=== PATIENT | female | born 1955 | race African-American/Black ===

== ENCOUNTER 2019-11-16 12:43 | Inpatient (IN) | payer OTHER ==
[~2019-11-16] VITALS: Ht 167.6 cm; Wt 35.8 kg
[2019-11-16 13:12] VITALS: BP_SYST 118
--- NOTE | 2019-11-16 13:30 | NUR ---
Patient to ER bed 08 to gown for evaluation. Side rails up.
--- NOTE | 2019-11-16 13:32 | NUR ---
Patient arrived in the ED accompanied by son for medical clearance prior to being placed at [facility] under Dr. La. Denied any chest pain, headache, or shortness of breath. Denied fevers, chills, nausea, or vomiting. Patient is alert and oriented x1, respirations even and unlabored, speaking in full sentences, and ambulating using a wheelchair. VSS, pain level 0/10. Son at bedside. Informed of approximate wait time. Instructed to notify ED staff for any changes in condition or worsening of symptoms. Patient's son verbalized understanding.
--- NOTE | 2019-11-16 13:34 | NUR ---
ER Dr. Patel at bedside examining patient.
--- NOTE | 2019-11-16 13:40 | NUR ---
Urine specimen collected and dropped off at the lab.
--- NOTE | 2019-11-16 13:43 | NUR ---
control valve technician at bedside collecting blood specimen as ordered by Dr. Patel. Patient tolerated the procedure well.
[2019-11-16 13:58] LABS: BILIRUBIN,URINE NEGATIVE (NEGATIVE); BLOOD, URINE NEGATIVE (NEGATIVE); CLARITY/URINE CLEAR (CLEAR); COLOR,URINE YELLOW (YELLOW); GLUCOSE,URINE NEGATIVE (NEGATIVE); KETONES,URINE NEGATIVE (NEGATIVE); LEUKOCYTE ESTERASE ,URINE 1+ (NEGATIVE); NITRITE, URINE NEGATIVE (NEGATIVE); PROTEIN URINE 1+ (NEGATIVE); UROBILINOGEN,URINE 0.2 (0.2-1.0)
[2019-11-16 14:10] LABS: BACTERIA,URINE FEW /HPF (None Seen); MUCUS,URINE 1+ /LPF (None Seen); RBC,URINE 0-3 /HPF (0-3)
[2019-11-16 14:17] LABS: ANION GAP 11 (5-15); CALCIUM 7.9 mg/dL (8.4-11.0); CHLORIDE 95 mmol/L (98-107); CREATININE 2.97 mg/dL (0.55-1.30); GLUCOSE 89 mg/dL (70-99); POTASSIUM 3.1 mmol/L (3.5-5.1); SODIUM SERUM 134 mmol/L (136-145); UREA NITROGEN, BLOOD 64 mg/dL (8-21)
[2019-11-16 14:23] LABS: GFR AFRICAN AMERICAN 20 mL/min (>90)
[2019-11-16 14:27] LABS: ALANINE AMINOTRANSFERASE 14 U/L (12-78); ASPARTATE AMINOTRANSFERASE 15 U/L (10-37); TOTAL BILIRUBIN 0.3 mg/dL (0.0-1.0)
[2019-11-16 14:28] LABS: ACETAMINOPHEN < 1 ug/mL (1-30); ALCOHOL, BLOOD < 3 mg/dL (<10)
[2019-11-16 14:32] LABS: BARBITURATE, URINE NEGATIVE (NEG <=200); BENZODIAZEPINE, URINE NEGATIVE (NEG <=150); CANNABINOID, URINE NEGATIVE (NEG <=50); COCAINE, URINE NEGATIVE (NEG <=150); METHAMPHETAMINES SCREEN,URINE NEGATIVE (NEG <=500); OPIATE, URINE NEGATIVE (NEG <=100); PHENCYCLIDINE SCREEN,URINE NEGATIVE (NEG <=25); UR TRICYCLIC ANTIDEPRESSANTS NEGATIVE (NEG <=300); URINE AMPHETAMINE NEGATIVE (NEG <=500); URINE METHADONE NEGATIVE (NEG <=200); URINE OXYCODONE SCREEN NEGATIVE (NEG <=100); URINE PROPOXYPHENE SCREEN NEGATIVE (NEG <=300)
[2019-11-16 14:50] LABS: BASOPHILS % (AUTO) 0.5 % (0.0-2.0); EOSINOPHILS # (AUTO) 1.4 K/uL (0.0-0.4); EOSINOPHILS % (AUTO) 19.1 % (0.0-4.0); HEMOGLOBIN 7.7 g/dL (12.0-16.0); LYMPHOCYTES % (AUTO) 14.2 % (20.5-51.5); MEAN CORPUSCULAR HEMOGLOBIN 32 pg (27-31); MEAN CORPUSCULAR HGB CONC 34 % (32-36); MEAN CORPUSCULAR VOLUME 97 fL (79.0-98.0); MONOCYTES # (AUTO) 0.4 K/uL (0.0-1.0); MONOCYTES % (AUTO) 5.3 % (1.7-9.3); NEUTROPHILS # (AUTO) 4.3 K/uL (1.8-7.7); NEUTROPHILS % (AUTO) 60.9 % (40.0-70.0); PLATELET COUNT (AUTO) 256 K/uL (130-430); RED BLOOD CELL COUNT(AUTO) 2.39 MIL/uL (4.2-6.2); RED CELL DISTRIBUTION WIDTH 16.1 % (9.0-15.0); WHITE BLOOD COUNT (AUTO) 7.1 K/uL (4.8-10.8)
[2019-11-16 14:51] LABS: CHOLESTEROL 132 mg/dL (<200); TRIGLYCERIDES 90 mg/dL (30-150)
[2019-11-16 14:52] LABS: HDL CHOLESTEROL 48 mg/dL (>55); LDL CHOLESTEROL 68 mg/dL (<100)
[2019-11-16] MEDS ORDERED: NACL 0.9% 1,000 ML IV ONE (15:00)
--- NOTE | 2019-11-16 15:13 | NUR ---
Received admiting orders from Dr. Lopez. Called for a bed.
[2019-11-16] MEDS ORDERED: KCL 20 mEq in NS 1000 mL 1,000 ML IV ONE (15:15)
--- NOTE | 2019-11-16 15:30 | NUR ---
Reconciled meds. Belonging's list done.
[2019-11-16] MEDS ORDERED: LEVO150T8 PO (15:34)
[2019-11-16] MEDS ORDERED: LORA-259 PO (15:36)
[2019-11-16] MEDS ORDERED: REM15 PO (15:36)
[2019-11-16] MEDS ORDERED: OLAN5TAB26 PO (15:36)
--- NOTE | 2019-11-16 15:40 | NUR ---
# 24 gauge angiocath placed to RIGHT HAND. Use of asceptic technique. Opsite placed over site. Blood return noted. Flushed with 10 cc of normal saline. No evidence of infiltration noted. Patient tolerated well.
--- NOTE | 2019-11-16 15:55 | NUR ---
ECG done at bedside as ordered by Dr. Patel. Patient tolerated the procedure well. Report given to
[2019-11-16] MEDS: NACL 0.9% 1,000 ML IV SCH (16:00)
--- NOTE | 2019-11-16 16:10 | NUR ---
ADMISSION NOTE Received patient from ER via darío, received report from JEAN-PAUL BREWSTER. Patient admitted with diagnosis of VASOMOTOR NEPHROPATHY, ACUTE RENAL FAILURE, DEHYDRATION, BIPOLAR. Patient oriented to hospital routine, call light, toileting and safety-patient verbalized understanding.
--- NOTE | 2019-11-16 16:17 | NUR ---
Patient will be admitted to care of Dr. Lopez. Admitted to Telemetry unit. Will go to room 106A. Belongings list completed. Complete and up to date summary report printed. SBAR report given to NEY Schaefer at bedside with opportunity for questions.
[2019-11-16 16:20] VITALS: BP_SYST 123
--- NOTE | 2019-11-16 16:45 | NUR ---
Initial Notes: Received patient sitting on the bed.Dr miranda came to examined the patient but patient refused to bed assessed.Non compliant.Call light with in reach. Bed locked at lowest position. Bed alarm on. Safety measures rendered. Continue to monitor.
[2019-11-16] MEDS ORDERED: LORazepam 1 MG TABLET PO PRN (17:00)
[2019-11-16] MEDS ORDERED: ACETAMINOPHEN 325 MG TABLET PO PRN (17:15)
[2019-11-16] MEDS ORDERED: LORazepam 1 MG TABLET GT PRN (17:15)
--- NOTE | 2019-11-16 18:44 | NUR ---
Closing Note: Patient refused to be assessed.Non compliant. Sitting on the bed.Non verbal. Refused iv fluids to be given. Patient tried hitting the Rn ,explained to patient the reason for iv fluids.Will endorsed to incoming night nurse patient in stable condition.Safety measures rendered. Continue to monitor.
--- NOTE | 2019-11-16 19:45 | NUR ---
Opening Note Received report from nima RN, patient is sitting up in bed, patient is nonverbal, patient refused tele monitor, explained and educated patient reasons for tele monitor. Will try again. No signs of acute distress, even and unlabored breathing on room air, IV to right hand intact and SL, safety and fall precautions in place, aspiration precautions in place, bed locked and in lowest position, bed alarm on, two side rails up, call light with patient, will continue to monitor.
--- NOTE | 2019-11-16 19:55 | NUR ---
Patient Refused Vital Signs Patient is sitting up in bed in her street clothes, no signs of acute distress, even and unlabored breathing on room air, IV to right hand intact, pt physically refused vital signs, assessment and tele monitor, admitting nurse Britt attempted to assist, pt still refused despite education, odor coming from the pt, pt physically refused to change into hospital gown, and refused to be touched. Safety and fall precautions in place, call light with patient, will continue to monitor.
--- NOTE | 2019-11-16 20:49 | NUR ---
Medication Patient is sitting up in bed, no signs of acute distress, tolerating room air, IV to right hand intact, offered comfort measures, educated patient on 2100 scheduled medication indications and potential side effects, patient refused medications despite education. Britt RN assisted with and patient still refused. Patient refused tele monitor and assessment at this time. Safety and fall precautions in place, call light with patient, will continue to monitor.
[2019-11-16] MEDS: MIRTAZAPINE 15 MG TABLET PO SCH (21:00)
[2019-11-16] MEDS: OLANZapine 5 MG TABLET PO SCH (21:00)
--- NOTE | 2019-11-16 21:30 | NUR ---
Dr. Lopez Spoke with Dr. Lopez regarding patients refusal to take 2000 vital signs, assessment, 2100 scheduled medications and tele monitor. Informed her that multiple nurses attempted to assist. gave new orders to D/C patient from telemetry. stated "let her be and I will come and see the patient in the morning". Orders verified by read-back, RN to input.
--- NOTE | 2019-11-16 22:40 | NUR ---
RN Rounds Pt is sitting up in bed, still in street clothes, tolerating room air, no signs of acute distress, IV to right hand intact, offered comfort measures and to help clean the pt, pt refused to be touched. Safety, fall, and aspiration precautions in place, call light with patient, will continue to monitor.
--- NOTE | 2019-11-17 00:07 | NUR ---
RN Rounds Patient is resting in bed, pt is still in her street clothes, no signs of acute distress, tolerating room air, IV to right hand intact, offered comfort measures, pt refused to be touched. Safety, aspiration, and fall precautions in place, call light with patient, will continue to monitor.
[2019-11-17] MEDS: NACL 0.9% 1,000 ML IV SCH ×3 (02:00→22:00)
--- NOTE | 2019-11-17 02:10 | NUR ---
RN Rounds Assisted patient to restroom and back to bed safely, odor coming from the patient, offered to clean the patient and change into gown but pt refused to be touched, no signs of acute distress, tolerating room air, IV intact. Safety, fall and aspiration precautions in place, call light with patient, will continue to monitor.
--- NOTE | 2019-11-17 03:23 | NUR ---
RN Rounds Patient is resting in bed, eyes closed, no signs of acute distress, even and unlabored breathing on room air, safety and fall precautions in place, call light with patient, will continue to monitor.
--- NOTE | 2019-11-17 04:03 | NUR ---
RN Rounds Assisted pt to restroom and back to bed safely, pt still in same clothes, odor coming from the pt offered to clean and change pt into gown but pt refused, no signs of acute distress, tolerating room air, IV to right hand intact. Safety, fall and aspiration precautions in place, call light with patient, will continue to monitor.
--- NOTE | 2019-11-17 05:35 | NUR ---
RN Rounds Patient is resting in bed, eyes closed, even and unlabored breathing on room air, no signs of acute distress at this time, offered to change patient into a gown and provide new linens, patient refused. Safety and fall precautions in place, call light with patient, will continue to monitor.
--- NOTE | 2019-11-17 05:39 | NUR ---
CONSULT: CONSULT CALLED FOR DR. WALLS I SPOKE WITH BECKY CUELLAR REASON FOR CONSULT: BIPOLAR DISORDER REQUESTING CONSULT: DR. GONZALEZ FACE SHEET WAS FAXED ALREADY TECHNICAL AGRONOMIST PHONE NUMBER: [phone]
[2019-11-17] MEDS: LEVOTHYROXINE SODIUM 0.15 MG TABLET PO SCH (06:29)
--- NOTE | 2019-11-17 06:33 | NUR ---
Medication Pt resting in bed, no signs of acute distress, educated pt on 0700 medication uses and potential side effects. Pt refused medication despite education. Safety and fall precautions in place, call light with pt will continue to monitor.
--- NOTE | 2019-11-17 06:41 | NUR ---
Closing Note Pt is sitting up in bed, still dressed in street clothes, even and unlabored breathing on room air, no signs of acute distress, IV to right hand intact, offered comfort measures through shift, pt refused to be touched. Safety, fall, and aspiration precautions in place, call light with patient, will endorse care to dayshift RN.
--- NOTE | 2019-11-17 08:46 | NUR ---
Nutrition Update Ilsandro Scale 16 noted. Pt admitted for vasomotor nephropathy, dehydration, ARF. Diet: N/A BMI: 12.9 kg/m2 RD to follow per nutrition care standards.
[2019-11-17] MEDS: FAMOTIDINE 20 MG TABLET PO SCH (09:00)
--- NOTE | 2019-11-17 09:48 | NUR ---
received patient in bed. face completely covered. patient not answering any questons. will not verbalize. was able to take vital signs, patient did resist but eventually allowed vital signs to be taken. Diyakyleparth refused AM meds. Able visualize IV site, no redness no swelling, was able to flush HL without resistance. IV site in p;cecille ,no redness no swelling at site. respirarations even and unlabored.
[2019-11-17 10:04] LABS: BASOPHILS % (AUTO) 0.8 % (0.0-2.0); EOSINOPHILS # (AUTO) 1.4 K/uL (0.0-0.4); EOSINOPHILS % (AUTO) 22.4 % (0.0-4.0); HEMATOCRIT 23.9 % (36-48); LYMPHOCYTES # (AUTO) 0.9 K/uL (1.0-5.5); LYMPHOCYTES % (AUTO) 14.7 % (20.5-51.5); MEAN CORPUSCULAR HEMOGLOBIN 33 pg (27-31); MEAN CORPUSCULAR HGB CONC 33 % (32-36); MEAN CORPUSCULAR VOLUME 97 fL (79.0-98.0); MONOCYTES # (AUTO) 0.3 K/uL (0.0-1.0); MONOCYTES % (AUTO) 5.6 % (1.7-9.3); NEUTROPHILS # (AUTO) 3.4 K/uL (1.8-7.7); NEUTROPHILS % (AUTO) 56.5 % (40.0-70.0); PLATELET COUNT (AUTO) 274 K/uL (130-430); RED BLOOD CELL COUNT(AUTO) 2.46 MIL/uL (4.2-6.2); RED CELL DISTRIBUTION WIDTH 15.9 % (9.0-15.0); WHITE BLOOD COUNT (AUTO) 6.1 K/uL (4.8-10.8)
[2019-11-17 10:18] LABS: TOTAL IRON BIND. CAPACITY 195 ug/dL (250-450)
[2019-11-17 10:28] LABS: ALBUMIN 2.9 g/dL (3.4-4.8); CALCIUM 8.3 mg/dL (8.4-11.0); CREATININE 2.54 mg/dL (0.55-1.30); POTASSIUM 3.3 mmol/L (3.5-5.1); THYROID STIMULATING HORMONE 1.51 uIu/mL (0.36-3.74); TOTAL BILIRUBIN 0.3 mg/dL (0.0-1.0)
[2019-11-17 11:23] VITALS: BP_SYST 96
[2019-11-17] MEDS ORDERED: POTASSIUM CHLORIDE 30 MEQ in NS 250 ML IV ONE (12:30)
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
[2019-11-17 15:14] VITALS: BP_SYST 107
[2019-11-17] MEDS: cefTRIAXone 1 GM in D5W 50 ML IV SCH (16:19)
--- NOTE | 2019-11-17 19:30 | NUR ---
Opening notes Received report. Patient is resting in bed. No signs of distress noted. Breathing even and unlabored. IV patent and intact, infusing k-rider. No needs at this time. Call light with the patient. Safety precautions in place.
[2019-11-17 20:00] VITALS: BP_SYST 116
[2019-11-17] MEDS: MIRTAZAPINE 15 MG TABLET PO SCH ×2 (21:00→22:10)
[2019-11-17] MEDS: OLANZapine 5 MG TABLET PO SCH ×2 (21:00→22:10)
--- NOTE | 2019-11-17 21:30 | NUR ---
Medications given. Educated the action and side effects of medications. Patient verbalized understanding and tolerated well. Patient IV infiltrated. IV removed, catheter tip intact and discarded. New IV inserted to left forearm 24 gauge. Resumed IVF. No other needs. Call light with the patient. Safety precautions in place.
--- NOTE | 2019-11-17 22:30 | NUR ---
Resting Patient resting in bed. No signs of distress noted. Breathing even and unlabored. IVF infusing well. Provided patient with warm blanket. No other needs. Call light with the patient. Safety precautions in place.
--- NOTE | 2019-11-18 00:30 | NUR ---
Resting Patient resting in bed. No signs of distress noted. Breathing even and unlabored. IVF infusing well. Call light with the patient. Safety precautions in place.
--- NOTE | 2019-11-18 02:00 | NUR ---
Sleeping Patient sleeping. No signs of distress noted. Breathing even and unlabored. IVF infusing well. Call light with the patient. Safety precautions in place.
--- NOTE | 2019-11-18 04:16 | NUR ---
Sleeping No signs of distress noted. Breathing even and unlabored. IVF infusing. No needs at this time. Call light with the patient. Safety precautions in place.
--- NOTE | 2019-11-18 06:50 | NUR ---
Closing notes Patient resting comfortably in bed. No signs of distress noted. Breathing even and unlabored. IV patent and intact, no signs of infiltration noted. All needs met throughout the shift. Call light with the patient. Safety precautions in place. Will endorse care to day shift RN.
[2019-11-18] MEDS: LEVOTHYROXINE SODIUM 0.15 MG TABLET PO SCH (07:00)
[2019-11-18] MEDS: NACL 0.9% 1,000 ML IV SCH ×3 (08:00→17:03)
[2019-11-18 08:08] LABS: FOLATE (FOLIC ACID) >20.0 ng/mL (>3.0)
[2019-11-18 08:50] VITALS: BP_SYST 94
--- NOTE | 2019-11-18 09:43 | NUR ---
FOLLOWED UP THE CONSULT CALLED TO DR WALLS. SPOKE TO YORDY
[2019-11-18] MEDS: FAMOTIDINE 20 MG TABLET PO SCH (09:46)
--- NOTE | 2019-11-18 09:47 | NUR ---
Routine Patient ambulated to bathroom and back to bed. Patient sitting on side of bed with no complaint of pain. Scheduled medication given per order. Patient stable.
--- NOTE | 2019-11-18 10:35 | NUR ---
Routine Patient sitting on side of bed with no distress noted at this time.
[2019-11-18] MEDS: cefTRIAXone 1 GM in D5W 50 ML IV SCH (11:41)
--- NOTE | 2019-11-18 11:45 | NUR ---
Routine Patient sitting on side of bed with no distress noted. Scheduled IV abx given per order. Patient stable. Will flush G-tube with 250 mls of water.
--- NOTE | 2019-11-18 12:50 | NUR ---
Routine Patient sitting on side of bed with no distress noted. Patient denies any pain at this time. Patient stable.
[2019-11-18 13:42] VITALS: BP_SYST 96
--- NOTE | 2019-11-18 14:35 | NUR ---
Routine Patient sitting on side of bed with head resting on foot of bed. Patient stable.
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
--- NOTE | 2019-11-18 15:32 | NUR ---
received pt from am shift nurse dann , pt is sitting on side of bed. no sob, no c /o pain. will cont to monitor.
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
[2019-11-18 16:31] VITALS: BP_SYST 116
--- NOTE | 2019-11-18 16:33 | NUR ---
Dietitian Recommendations * Consider nutrition support within 2-[address] Please refer to Nutrition Assessment for details. Addendum: 11/18/19 at [address] Amended: Links added.
--- NOTE | 2019-11-18 17:58 | NUR ---
PT REFUSED TO HAVE G-TUBE FLUSHED, EXPLAINED TO PT ABOUT THE ORDER TO DO IT EVERY 6 HOURS, PT STILL REFUSED.
--- NOTE | 2019-11-18 18:32 | NUR ---
pt changed her mind and now wants to this rn to flush her g-tube. pt refused to have me hold the g-tube, she was holding the g-tube at almost at the tip. flushed g-tube with 60 cc of sterile water, pt refused to continue after 150 cc.
--- NOTE | 2019-11-18 18:40 | NUR ---
CLOSING NOTES, PT HAS BEEN STABLE, SINCE START OF CARE, NO C/O PAIN, NO SOB. IV FLUIDS INFUSING WELL. 150 CC OF WATER FLUSHED FOR G-TUBE. DR MEMBRENO CALLED THIS PM. WILL SEE PT IN AM. ASSISTED PT PER PT'S REQUEST TO CANCEL HER RESIN COATER APPOINTMENT.
--- NOTE | 2019-11-18 19:30 | NUR ---
Opening notes Received report. Patient is sitting in bed. No signs of distress noted. Breathing even and unlabored. VSS. Patient refused complete assessment, stating "please just leave me alone." No needs at this time. Call light with the patient. Safety precautions in place.
[2019-11-18 20:08] VITALS: BP_SYST 100
[2019-11-18] MEDS: MIRTAZAPINE 15 MG TABLET PO SCH (21:00)
[2019-11-18] MEDS: OLANZapine 5 MG TABLET PO SCH (21:00)
--- NOTE | 2019-11-18 21:30 | NUR ---
Refused medications Educated the action and side effects of medications. Patient still refuses. No needs at this time. Call light with the patient. Safety precautions in place.
--- NOTE | 2019-11-18 23:45 | NUR ---
Ambulatory to bathroom Patient called for help to bathroom. Offered assistance. Patient stated "I can do this by myself." RN and DIE MAINTENANCE TECHNICIAN in room in case patient needs help. Patient walks slowly, shuffling gait. Patient back in bed and sits at foot of bed. Encouraged patient to put head at the top of the bed. Patient refuses. No other needs. Call light with the patient. Safety precautions in place.
--- NOTE | 2019-11-19 01:41 | NUR ---
Sleeping Patient sleeping with baker over head. No signs of distress noted. Breathing even and unlabored. No needs at this time. Call light with the patient. Safety precautions in place.
[2019-11-19] MEDS: NACL 0.9% 1,000 ML IV SCH ×2 (04:00→14:00)
--- NOTE | 2019-11-19 04:00 | NUR ---
Agitation Patient walked out to nurses station. RN approached patient and offered assistance. Patient stared at RN and aggressively shook IV pole as if trying to hit nurse. Patient continued to walk down the hallway. Patient was stopped in the middle of hallway for about 20 minutes. Security was called. Patient refused to talk and be touched. Patient would not move and was growling when staff neared the patient. Patient was then placed in wheelchair and wheeled back to bed. Patient had catatonic rigidity. Patient's hands locked in fists position.
--- NOTE | 2019-11-19 06:24 | NUR ---
Closing notes Patient resting comfortably in bed. No signs of distress noted. Breathing even and unlabored. IV patent and intact, no signs of infiltration noted. Patient refused medications. All needs met throughout the shift. Call light with the patient. Safety precautions in place. Will endorse care to day shift RN.
[2019-11-19] MEDS: LEVOTHYROXINE SODIUM 0.15 MG TABLET PO SCH (06:45)
--- NOTE | 2019-11-19 07:50 | NUR ---
opening note patient is resting in bed, no signs of distress at this time, patient has her jacket hoodie covering her head and has her hands in the pockets, I asked patient if I can take her vital signs she said NO to me, and guarded her arms, patient asked me to leave the room, no other needs addressed at this time, brake armed, bed in lowest position, two side rails up, bed alarm on, room close to station, fall/safety precautions in place, patient refused to be connected back to her IVF. Addendum: 11/19/19 at 0810 by Korina Castellano RN incorrect entry, room not close to station
[2019-11-19] MEDS: FAMOTIDINE 20 MG TABLET PO SCH (09:01)
--- NOTE | 2019-11-19 10:30 | NUR ---
Dr La and Dr Saldaña both saw patient for consult, Dr Saldaña says it is okay to give patient PO food and g tube is okay to use if needed to be, patient allowed for us to flush g tube but said she did not want to be connected to tube feeding, no signs of distress at this time.
[2019-11-19 11:27] VITALS: BP_SYST 98
[2019-11-19] MEDS: cefTRIAXone 1 GM in D5W 50 ML IV SCH (11:30)
--- NOTE | 2019-11-19 12:17 | NUR ---
patient tolerating lunch patient got a lunch tray, is tolerating well, no signs of aspiration, patient denies any nausea or abdominal discomfort, verbalized understanding to let me know if she does experience any nausea of abdominal discomfort, no signs of distress, fall/safety and aspiration precautions in place.
--- NOTE | 2019-11-19 14:40 | NUR ---
rounds patient sitting on the edge of the bed, watching tv, no signs of distress at this time, no needs addressed at this time, fall/safety precautions in place.
[2019-11-19 15:27] VITALS: BP_SYST 143
--- NOTE | 2019-11-19 16:41 | NUR ---
rounds patient ambulating in room, Dr Lopez came to see patient already, updated her on patient eating and drinking, will put in orders, no signs of distress at this time, fall/safety precautions in place.
--- NOTE | 2019-11-19 18:35 | NUR ---
closing note patient is sitting on the edge of the bed eating her dinner, no signs of distress at this time, no other needs addressed at this time, brake armed, bed in lowest position, two side rails up, call light within reach, fall/safety precautions in place, will endorse report to noc shift nurse to continue with care, patient had g tube that can be used if needed to (patient doesn't want to eat/drink or take medications), patient has been tolerating PO food and water well.
[2019-11-19 20:00] VITALS: BP_SYST 140
--- NOTE | 2019-11-19 20:20 | NUR ---
RN NOTES: PT REFUSED TO VITALS /ASSESSMENT ETC . WILL COME BACK ; PT STATED ONCE ROOM IS WARM SHE WILL LET ME DO IT .
[2019-11-19] MEDS: OLANZapine 5 MG TABLET PO SCH (20:50)
[2019-11-19] MEDS: MIRTAZAPINE 15 MG TABLET PO SCH (20:50)
--- NOTE | 2019-11-19 20:50 | NUR ---
RN NOTES: PROVIDED MILK AND PUDDING ,PT ATE WELL ;PT IS TALKING AT THIS TIME ;PT ALLOWED RN TO DO SOME ASSESSMENT BUT REFUSED TO CHECK HER SKIN AND LUNGS ; NO S/S OF ANY ASPIRATION NOTICED; NOTICED G T SITE WITH NO DRESSING ; ALSO NOTICED DRAINAGE WITH FOUL SMELL AT THE SITE ; PT REFUSED TO LYE DOWN SO UNABLE TO SEE THE STOMA SITE / PERIWOUND SITE WELL ; CLEANED WITH GAUZE , NOTICED GAUZE WITH SEROUS AND YELLOW DRAINAGE ; FOUL SMELLING PRESENT ; CLEANED WITH NS AND PAT DRIED ; COVERED SITE WITH DRY GAUZE . DUE MEDS GIVEN PER ORDER . PT REQUESTED FOR WARM BLANKET , AND ITS PROVIDED . BED IN LOW AND LOCK POSITION ; CALL LEDESMA IN REACH ; ENCOURAGED PT TO CALL FOR HELP ; PT REFUSED IV FLUID TO CONNECT . WILL CONTINUE TO MONITOR PT .
--- NOTE | 2019-11-19 21:50 | NUR ---
TRANSFER OF CARE : REPORT GIVEN TO DESTINEE RN ; PT IS COMFORTABLE ; NOT IN ANY ACUTE DISTRESS AT THIS TIME ; ALL NEEDS ATTENDED
--- NOTE | 2019-11-19 21:50 | NUR ---
ASSUMPTION OF CARE BEDSIDE REPORT RECEIVED FROM NEY FISCHER. AT THIS TIME, PATIENT IS RESTING IN BED, STABLE, NO SIGNS OF RESPIRATORY DISTRESS. PATIENT VERBALIZES NO PAIN. PLAN OF CARE FOR THE EVENING IS COMMUNICATED WITH THE PATIENT. CALL LIGHT TEACH BACK IS UNSUCCESSFUL DUE TO PATIENT'S COGNITIVE IMPAIRMENT. CLOSE MONITORING WILL BE COMPLETED THROUGHOUT THE SHIFT FOR PATENT'S SAFETY. BED IS LOCKED, ALARMED, AND THE LOWEST LEVEL. FALL, SAFETY, RESPIRATORY, AND ASPIRATION PRECAUTIONS WILL BE TAKEN THROUGHOUT THE SHIFT.
--- NOTE | 2019-11-19 23:50 | NUR ---
NOTE PATIENT IS SLEEPING, STABLE, NO SIGNS OF RESPIRATORY DISTRESS. CALL LIGHT IS WITHIN REACH. BED IS LOCKED, ALARMED AT AT THE LOWEST LEVEL.
[2019-11-20 00:14] VITALS: BP_SYST 116
--- NOTE | 2019-11-20 01:50 | NUR ---
HYGIENE CARE HYGIENE CARE PROVIDED AT THIS TIME AFTER SHE HAD A BOWEL MOVEMENT. FRESH LINENS PROVIDED, PATIENT TOLERATED WELL. SNACKS PROVIDED FOR PATIENT, SHE HAS A GOOD APPETITE AT THIS TIME. CALL LIGHT IS PLACED WITHIN REACH. BED IS LOCKED, ALARMED, AND AT THE LOWEST LEVEL.
--- NOTE | 2019-11-20 03:05 | NUR ---
NOTE PATIENT IS SLEEPING, STABLE, NO SIGNS OF RESPIRATORY DISTRESS. CALL LIGHT IS WITHIN REACH. BED IS LOCKED, ALARMED AT AT THE LOWEST LEVEL.
[2019-11-20] MEDS: NACL 0.9% 1,000 ML IV SCH (03:27)
--- NOTE | 2019-11-20 05:00 | NUR ---
HYGIENE CARE PATIENT HAD A BOWEL MOVEMENT,HYGIENE CARE PROVIDED, PATIENT TOLERATED WELL . FRESH LINENS PROVIDED. CALL LIGHT IS PLACED WITHIN REACH. BED IS LOCKED, ALARMED, AND AT THE LOWEST LEVEL.
[2019-11-20] MEDS: LEVOTHYROXINE SODIUM 0.15 MG TABLET PO SCH (06:04)
--- NOTE | 2019-11-20 06:53 | NUR ---
CLOSING NOTE PATIENT HAD FEW EPISODES OF CONFUSION THROUGHOUT THE NIGHT; REORIENTATION EFFORTS WERE ENOUGH TO CALM HER DOWN. SHE HAD A GREAT APPETITE LAST NIGHT, SHE ASKED FOR NUMEROUS SNACKS AND FINISHED ALL OF THEM WITHOUT ASSIST NECESSARY. SHE ALLOWED FOR STAFF TO GIVE HER HYGIENE CARE THROUGHOUT THE NIGHT. AT THIS TIME, PATIENT IS RESTING IN BED, STABLE, NO SIGNS OF RESPIRATORY DISTRESS. CALL LIGHT IS WITHIN REACH. BED IS LOCKED, ALARMED, AND AT THE LOWEST LEVEL. FALL, SAFETY, RESPIRATORY, AND ASPIRATION PRECAUTIONS HAVE BEEN IN PLACE THROUGHOUT THE NIGHT. WILL CONTINUE TO MONITOR UNTIL SHIFT REPORT IS GIVEN AT BEDSIDE TO AM NURSE.
[2019-11-20 07:44] LABS: CALCIUM 8.7 mg/dL (8.4-11.0); CREATININE 2.25 mg/dL (0.55-1.30); POTASSIUM 3.9 mmol/L (3.5-5.1)
[2019-11-20 08:00] VITALS: BP_SYST 105
--- NOTE | 2019-11-20 09:36 | NUR ---
P.T. NOTES RECEIVED P.T. EVAL ORDER, Pt AWAKE, EYES CLOSED, ABLE TO VERBALLY RESPOND, HAS HER HEAD COVERED W/ HER BLANKET, WANTS LIGHTS OFF & WINDOW SHADE CLOSED, DECLINED TO PARTICIPATE W/ P.T., DOES NOT STATE REASON, EXPLAINED RISKS OF BED BOUND, PT STILL REFUSED, APPEARS TO BE IGNORING P.T. STAFF; CALL LEDESMA, TABLE IN REACH, BED ALARM ON; RN NOTIFIED; PSYCHOSOCIAL FACTOR; 11/20/19 Hgb=8.0, CREATININE=2.25; FF UP WHEN PARTICIPATIVE.
--- NOTE | 2019-11-20 10:02 | NUR ---
Case mgt: Rec'd order [facility]--per nurse Dr. Jessica Newby indicates pt needs 2 more days of IV abx--PT eval is pending--faxed referral to [facility] fax#[phone] ---pt is not on 5150 hold. ANTONIETTA RN
--- NOTE | 2019-11-20 11:15 | NUR ---
Note Pt has had her head covered and unwilling to talk to RN or staff since 0730am. Pt now awake and assisted to restroom and back to bed. Pt sitting on side of bed and wants to eat her banana and yogurt. Dr La came to see pt at this time and assessment was done. Pt talking and interacting with [facility] nursing tech and RN at this time. Pt confused and no coherent thoughts at this time. Pt is calm and took her 09am Pepcid PO medications. No SOB/resp distress or pain/discomfort was noted. Call light within reach. Pt next to nurses' station for close observation for needs and care.
[2019-11-20] MEDS: FAMOTIDINE 20 MG TABLET PO SCH (11:24)
[2019-11-20 12:00] VITALS: BP_SYST 122
--- NOTE | 2019-11-20 14:00 | NUR ---
Note Pt refused to have GT flushed with water 250ml at noon (or at 06am). Pt will not let RN assess GT site or change dressings. Pt in bed at this time resting. No needs noted. Call light within reach.
[2019-11-20 15:06] VITALS: BP_SYST 109
--- NOTE | 2019-11-20 15:50 | NUR ---
Note Pt resting in bed with bed covers over her head. Pt denies any needs at this time. Pt has television on and overhead light over bed on at this time. Pt assisted OOB to restroom. Pt refuses to use FWW and wants to hold on to staff member to ambulate to the restroom. Pt has been instructed over and over again to use FWW to ambulate, pt refuses all shift to do so. Call light within reach and bed alarm on.
--- NOTE | 2019-11-20 17:19 | NUR ---
Nutrition F/U RD reviewed pt's current EMR record including diet Hx, physician notes, nursing notes, pertinent labs/meds/procedures, care trends, and care activity. Admission Dx: Vasomotor nephropathy, dehydration, ARF Pt also found w/ FTT, anemia per physician notes PMH: HTN, bipolar Dz, rectal prolapse, s/p GT insertion, s/p exploratory laparotomy, s/p R hip Sx per physician notes Current Diet Order/Nutrition Support: Mechanical soft, finely chopped, soft x1 day Subjective Info: Pt seen resting in bed at time of RD visit. Pt reported good appetite, but appeared edentulous. Pt reported that she is not happy w/ mechanical soft diet because she is able to eat regular foods. RD encouraged pt to speak w/ physicians regarding upgrading diet. Pt is not yet meeting optimal nutritional needs based on PO intake records (42% average x5 meals). RN reported that pt refuses to allow her to view GT or administer water flushes as per physician order. RD offered ONS Ensure Enlive -- pt agreeable. Pt requires encouragement w/ oral intakes. Pt remains at increased risk for malnutrition. Usual Diet At Home TPN, oral grat (small meals -- Ensure) per EMR Skin Integrity Comment: Lisandro scale: 19; anterior abd w/ GT site (clamped) per EMR Estimated Energy Expenditure (kcals/day) 7435-8454 kcal/day (25-30 kcal/kg Adj IBW for gradual wt gain) Estimated Protein Required (g/day) 59-71 gm/day (1-1.2 gm/kg Adj IBW for gradual wt gain) Estimated Fluid Required (l/day) 1.5-1.8 L/day (1 ml/kcal/day for maintenance) Problem/Etiology/Signs/Symptoms Malnutrition related to complicated GI function as evidenced by need for NPO status 2/2 possible GI obstruction. *pt now on PO diet Suboptimal PO intakes related to lack of preference for foods provided as evidenced by pt report of disliking mechanical, chopped foods. Expected Outcomes/Goals - Monitor provision of nutrition support w/ goal of pt meeting at least 50% of estimated nutritional needs, labs trending WNL, normal GI function, and skin integrity/wt maintenance Dietitian Recommendations * Consider liberalizing diet (regular) per pt request * Recommend Ensure Enlive TID, Lyndon BID (supplements provide 1230 kcal/day, 65 gm protein/day) Follow Up High Risk: F/U in 2-3 days
--- NOTE | 2019-11-20 17:26 | NUR ---
Dietitian Recommendations * Consider liberalizing diet (regular) per pt request * Recommend Ensure Enlive TID, Lyndon BID (supplements provide 1230 kcal/day, 65 gm protein/day) LP, RD Please refer to Nutrition F/U for details.
--- NOTE | 2019-11-20 18:10 | NUR ---
Note Pt refused water flush of GT. Pt sitting on side of bed eating her dinner. No SOB/resp distress or pain/discomfort noted. IV in right forearm intact and patent at this time. Pt was checked on q1' and PRN all shift for needs and care. No needs noted at this time. Call light within reach.
--- NOTE | 2019-11-20 18:25 | NUR ---
Note Pt called RN in and requested that 250ml water flush be done now and dressing around GT be done. Water flush and dressing change around GT done at this time. Pt now resting in bed with overhead bed light on.
--- NOTE | 2019-11-20 19:20 | NUR ---
Opening Note Received report from nima RN, patient is resting in bed, awake, on the phone, no complaints of pain at this time, even and unlabored breathing on room air, IV to right FA in place and SL, g-tube is clamped, unable to assess residual patient refused despite education, safety, fall, and aspiration precautions in place, bed locked and in lowest position, bed alarm on, three side rails up, call light with patient, will continue to monitor.
[2019-11-20 20:00] VITALS: BP_SYST 115
[2019-11-20] MEDS: MIRTAZAPINE 15 MG TABLET PO SCH (21:36)
[2019-11-20] MEDS: OLANZapine 5 MG TABLET PO SCH (21:37)
--- NOTE | 2019-11-20 21:37 | NUR ---
Medications Patient is resting in bed, no signs of acute distress, no complaints of pain, educated patient on 2100 scheduled medications uses and potential side effects, patient able to verbalize understanding, administered PO medications per MD order with water, patient tolerated well, safety, aspiration and fall precautions in place, call light with patient, will continue to monitor.
--- NOTE | 2019-11-20 23:35 | NUR ---
RN Rounds Patient is resting in bed, awake, no signs of acute distress, tolerating room air, no complaints of pain, IV to right FA intact and SL, G-tube is clamped, safety and fall precautions in place, call light with patient, will continue to monitor.
[2019-11-21 00:04] VITALS: BP_SYST 93
--- NOTE | 2019-11-21 02:31 | NUR ---
RN Rounds Assisted patient to restroom and back to bed safely, patient voided and had a small BM, patient reported no difficulty, patient has a unsteady gait, refuses to use walker despite education, no complaints of pain, no signs of acute distress, tolerating room air, IV to right FA intact and SL, G-tube is clamped, safety and fall precautions in place, call light with patient, will continue to monitor.
--- NOTE | 2019-11-21 04:50 | NUR ---
RN Rounds Assisted patient to restroom and back to bed safely, patient had a small BM, patient reported no difficulty. Patient has a steady gait with walker, no complaints of pain, no signs of acute distress, tolerating room air, IV to right FA intact and SL, patient refused her IV fluids, G-tube is clamped, safety and fall precautions in place, call light with patient, will continue to monitor.
[2019-11-21] MEDS: LEVOTHYROXINE SODIUM 0.15 MG TABLET PO SCH (06:14)
--- NOTE | 2019-11-21 06:59 | NUR ---
Closing Note Patient is resting in bed, awake, no complaints of pain at this time, even and unlabored breathing on room air, IV to right FA in place and SL, patient refused IV fluids, g-tube is clamped, 50mL residual, completed her dressing change, safety, fall, and aspiration precautions in place, bed locked and in lowest position, bed alarm on, three side rails up, call light with patient, will endorse care to dayshift RN.
[2019-11-21 07:35] VITALS: BP_SYST 105
--- NOTE | 2019-11-21 07:35 | NUR ---
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
[2019-11-21] MEDS: FAMOTIDINE 20 MG TABLET PO SCH (08:18)
--- NOTE | 2019-11-21 08:20 | NUR ---
Medication patient resting in bed, awake, denies pain, educated on morning medications uses and potential side effects, she verbalized understanding and tolerated well, no other needs at this time, bed in lowest position, two side rails up, bed alarm on, bed close to nursing station, call light within reach, fall and aspiration precautions in place.
--- NOTE | 2019-11-21 10:32 | NUR ---
RN rounds patient in the restroom, ambulated with walker by herself, inquired if she needs assistance, she denies at this time, instructed her to use restroom call light if she needs assistance, she verbalized understanding, continuing to monitor, fall precautions in place.
[2019-11-21 12:00] VITALS: BP_SYST 110
--- NOTE | 2019-11-21 12:15 | NUR ---
RN rounds patient resting in chair at bedside, eating lunch, aspiration and fall precautions in place, patient denies pain, no other needs at this time, bed in lowest position, two side rails up, placed call light within patient reach, continuing to monitor patient.
--- NOTE | 2019-11-21 15:00 | NUR ---
RN rounds patient sitting in bed, denies pain, no distress, no needs at this time, continuing to monitor her, bed in lowest position, two side rails up, call light is within patient reach, fall and aspiration precautions in place.
--- NOTE | 2019-11-21 15:05 | NUR ---
Discharge Planning: SUSTAINABILITY PROJECT COORDINATOR placed call to [facility] ([phone]); the charge nurse was not available; SUSTAINABILITY PROJECT COORDINATOR left a message. SUSTAINABILITY PROJECT COORDINATOR will follow up on referral to [facility].
[2019-11-21 16:00] VITALS: BP_SYST 118
--- NOTE | 2019-11-21 17:00 | NUR ---
RN rounds patient resting in bed, awake, denies pain, no signs of distress, continuing to monitor, bed in lowest position, two side rails up, bed close to nursing station, fall and aspiration precautions.
--- NOTE | 2019-11-21 18:15 | NUR ---
Closing note patient resting in bed, awake, denies pain, denies shortness of breath, all needs met, will endorse report to NOC shift nurse, bed in lowest position, two side rails up, call light within reach, bed close to nursing station, fall and aspiration precautions in place.
[2019-11-21 20:00] VITALS: BP_SYST 127
--- NOTE | 2019-11-21 21:00 | NUR ---
PT RECIEVED ALERT AND CONFUSED .SKIN WARM AND INTACT. PT HAVE REDNESS TO THE BOTTUCK AREA . PT KEEP CLEAN AND DRY . VITAL SIGN STABLE . NO C/O ANY PAIN , VITAL SIGN STABLE . PT WILL BE MONITORED CLOSELY . TO MAKE SURE SHE DOES TO FALL .
[2019-11-21] MEDS: MIRTAZAPINE 15 MG TABLET PO SCH (22:17)
[2019-11-21] MEDS: OLANZapine 5 MG TABLET PO SCH (22:17)
--- NOTE | 2019-11-22 | NUR ---
PT SLEEPING , VITAL SIGN CHECKED AND STABLE . PT WILL CONTINUE TO BE MONITORED THROUGH THE NIGHT .
--- NOTE | 2019-11-22 | NUR ---
PT SLEEPING . VITAL SIGN STABLE . WILL CONTINUE TO MONITOR PT NEEDED
--- NOTE | 2019-11-22 05:00 | NUR ---
PT AWAKE .PT CONTINUE TO SAY THAT HE WILL BE SHE WANT TO GO HOME . WILL CONTINUE TO MONITOR PT .
--- NOTE | 2019-11-22 05:00 | NUR ---
PT IN BED , N C/O PAIN NO SOB . PT WILL CONTINUE TO BE MONITORED CONTINOUSLY .
[2019-11-22 06:36] VITALS: BP_SYST 121
--- NOTE | 2019-11-22 08:00 | NUR ---
ASSUMPTION OF CARE: RECEIVED PT A/A/OX 1-2, DX:FLUID VOLUME DEFICIT, R/T DEHYDRATION, ACUTE RENAL FAILURE, VASOMOTOR NEUROPATHY, VSS, NO S/S OF DISTRESS, BREATH SOUNDS ARE CLEAR, BREATHING UNLABORED, IV SITE INTACT, PATENT, NO REDNESS OR SWELLING, ORIENTED TO UNIT, CALL LIGHT PLACED WITHIN REACH, WILL CONT' TO MONITOR AND ASSESS.
[2019-11-22] MEDS: FAMOTIDINE 20 MG TABLET PO SCH (08:42)
[2019-11-22] MEDS: LEVOTHYROXINE SODIUM 0.15 MG TABLET PO SCH (08:42)
--- NOTE | 2019-11-22 09:00 | NUR ---
OPERATIONS SUPPORT COORDINATOR: MORNING MEDS GIVEN, PER ORDERED BY Dejuan, TOLERATED WELL, WILL CONT' TO MONITOR AND ASSESS.
[2019-11-22 12:00] VITALS: BP_SYST 105
--- NOTE | 2019-11-22 12:00 | NUR ---
PT: PHYSICAL THERAPIST AT BEDSIDE FOR EVAL AND TX OF PT, SEEN WALKING PT IN HALLWAY WITH WALKER, PT APPEARS STEADY AT THIS TIME, WILL CONT' TO MONITOR AND ASSESS.
--- NOTE | 2019-11-22 12:11 | NUR ---
Social Service Note: LAB INTERN spoke with Rakel at [facility] who stated that pt cannot go to their unit due to pt having a gtube. LAB INTERN will update CM. Pt is not on a 5150.
--- NOTE | 2019-11-22 15:00 | NUR ---
NURSES NOTES: PT ASLEEP IN BED, EASILY AROUSED VIA VERBAL STIMULI, NO C/O PAIN OR DISCOMFORT, NEEDS MET, CALL LIGHT WITHIN REACH, WILL CONT' TO MONITOR AND ASSESS.
[2019-11-22 15:06] VITALS: BP_SYST 110
--- NOTE | 2019-11-22 17:00 | NUR ---
VISIT: AT BEDSIDE FOR ASSESSMENT OF PT, NEW ORDERS GIVEN, WILL CONT' TO MONITOR AND ASSESS.
--- NOTE | 2019-11-22 19:45 | NUR ---
A/A / OX2.PT COMBATIVE TRIED TO HIT RN.REFUSED V/S@ THIS TIME.
--- NOTE | 2019-11-22 21:00 | NUR ---
REFUSED MEDS.TRIED HITTING RN & SQUEEZING HER HANDS.
[2019-11-22] MEDS: MIRTAZAPINE 15 MG TABLET PO SCH ×2 (21:38→21:50)
[2019-11-22] MEDS: OLANZapine 5 MG TABLET PO SCH ×2 (21:41→21:49)
--- NOTE | 2019-11-22 23:00 | NUR ---
RESTING QUIETLY IN NO ACUTE DISTRESS.
--- NOTE | 2019-11-23 | NUR ---
REFUSED V/S AND FLUSHING GT.
--- NOTE | 2019-11-23 02:00 | NUR ---
RESTING COMFORTABLY IN NO ACUTE DISTRESS.
--- NOTE | 2019-11-23 03:00 | NUR ---
AMBULATE WITH WALKER TO THE BR,BATHING HERSELF.ASSISTING HER NEEDS.
--- NOTE | 2019-11-23 03:45 | NUR ---
BACK TO BED WITH WALKER.
[2019-11-23 04:00] VITALS: BP_SYST 121
--- NOTE | 2019-11-23 04:00 | NUR ---
V/S STABLE.AFEBRILE.O2 SAT 94% RA.
--- NOTE | 2019-11-23 06:00 | NUR ---
REFUSED GT FLUSHING.
--- NOTE | 2019-11-23 06:37 | NUR ---
ENDORSED SITTING @ THE EDGE OF THE BED.NO ACUTE DISTRESS NOTED.CALL LIGHT WITHIN REACH.SAFETY MAINTAINED.
[2019-11-23 08:00] VITALS: BP_SYST 130
[2019-11-23] MEDS: LEVOTHYROXINE SODIUM 0.15 MG TABLET PO SCH (08:08)
[2019-11-23] MEDS: FAMOTIDINE 20 MG TABLET PO SCH (08:12)
--- NOTE | 2019-11-23 11:43 | NUR ---
DC Planning: LVM to discuss dcp to snf/choice of snf with , son/Carlos [phone] and son/Faiza #[phone]. Meanwhile, will fax referral inquire to [facility] per dr. La 's recommendation. Addendum: 11/23/19 at 1635 by Lauren Luu RN F/U with sons/ no returning call since this am. CM LVM again.
[2019-11-23 12:00] VITALS: BP_SYST 128
--- NOTE | 2019-11-23 12:06 | NUR ---
Discharge Planning: DCP faxed referral [facility] (f [phone] p [phone]) DCP to follow up Addendum: 11/23/19 at 1251 by Zhanna TOTH DCP followed up with Far[facility] at [facility] (f [phone] p [phone]) patient is being reviewed.
--- NOTE | 2019-11-23 13:56 | NUR ---
PHYSICAL THERAPY CO-SIGN The Physical Therapy Progress Notes documented by Fiscal Technician have been reviewed. Reviewed/Co-Signed by: Lucho Isbell, PT Documentation Done by: ELIZ MUÑOZ PTA Addendum: 11/23/19 at 1357 by Lucho Isbell PT Amended: Links added.
--- NOTE | 2019-11-23 16:25 | NUR ---
DC Planning: Call back from Netta, Liaison from [facility], informed that her business office is still working on open MSP and can't take the pt until have full clearance from her liability insurance that Medicare will be primary. Addendum: 11/23/19 at 1640 by Lauren Luu RN Per Netta, "concerning there is an medical litigation case opened so that Medicare will step back with payment."
--- NOTE | 2019-11-23 16:30 | NUR ---
PATIENT SITTING ON THE BED . DOES NOT APPEAR TO BE ON ANY DISTRESS. INFORMED PATIENT THAT SHE IS ACCEPTED TO A PRISON FACILITY, [facility] AND THAT AN AMBULANCE WILL TAKE HER THERE. PATIENT STARRED AT THE RECORDER AND STATED "I AM NOT GOING". EXPLAINED TO PATIENT THAT SHE IS WELL NOW AND DOES NOT NEED TO BE IN THE HOSPITAL. PATIENT ANSWERED " i AM GOING hOME "
[2019-11-23 16:42] VITALS: BP_SYST 113
--- NOTE | 2019-11-23 17:36 | NUR ---
Nutrition F/U RD reviewed pt's current EMR record including diet Hx, physician notes, nursing notes, pertinent labs/meds/procedures, care trends, and care activity. Admission Dx: Vasomotor nephropathy, dehydration, ARF Pt also found w/ FTT, anemia per physician notes PMH: HTN, bipolar Dz, rectal prolapse, s/p GT insertion, s/p exploratory laparotomy, s/p R hip Sx per physician notes Current Diet Order/Nutrition Support: Mechanical soft, finely chopped, soft, Ensure Enlive TID, Lyndon BID x2 days Subjective Info: Pt seen sitting on side of bed w/ phone to ear and lunch tray at bedside untouched. RD spoke to pt, but no response was given. Pt appeared to have her eyes closed. Per EMR, PO intake records indicate 13% average x6 meals -- pt is likely not meeting optimal nutritional needs. Usual Diet At Home TPN, oral grat (small meals -- Ensure) per EMR Skin Integrity Comment: Lisandro scale: 19; anterior abd w/ GT site (clamped) per EMR Estimated Energy Expenditure (kcals/day) 8615-9268 kcal/day (25-30 kcal/kg Adj IBW for gradual wt gain) Estimated Protein Required (g/day) 59-71 gm/day (1-1.2 gm/kg Adj IBW for gradual wt gain) Estimated Fluid Required (l/day) 1.5-1.8 L/day (1 ml/kcal/day for maintenance) Problem/Etiology/Signs/Symptoms Malnutrition related to complicated GI function as evidenced by need for NPO status 2/2 possible GI obstruction. *ongoing Suboptimal PO intakes related to lack of preference for foods provided as evidenced by pt report of disliking mechanical, chopped foods. *ongoing Expected Outcomes/Goals - Monitor provision of nutrition support w/ goal of pt meeting at least 50% of estimated nutritional needs, labs trending WNL, normal GI function, and skin integrity/wt maintenance Dietitian Recommendations * Consider liberalizing diet (regular) per pt request * Recommend Ensure Enlive TID, Lyndon BID (supplements provide 1230 kcal/day, 65 gm protein/day) Follow Up High Risk: F/U in 2-3 days
--- NOTE | 2019-11-23 18:51 | NUR ---
Patient stable, a little adamant about going home and not to the skilled facility. Tried reaching out to both sons for f/u but no call back as of yet.
[2019-11-23 20:00] VITALS: BP_SYST 115
--- NOTE | 2019-11-23 20:00 | NUR ---
Pt. ambulating and with BRP. Pt. alert, awake, oriented x 3-4, verbalized about going home. Pt. wants to go home. pt. provided explanation that there's no final discharge home order made by her Doctor. Will follow-up tomorrow as explained to the pt. Pt. called his son that she's not going home tonight.
--- NOTE | 2019-11-23 22:00 | NUR ---
Pt. given food and snacks when feeling hungry. Provided pt. assistance and help @ the bedside. Pt. is pain free and no s/s of N/V.
[2019-11-24] VITALS (7 sets, daily range): BP systolic 107–132
--- NOTE | 2019-11-24 | NUR ---
Pt. sleeping and resting quietly. Keep pt. room environment free from noise and dimlighted to help pt. sleep.
--- NOTE | 2019-11-24 06:00 | NUR ---
Pt. awakened, with BRP, assisted @ the BR. Keep pt. safe and assisted with needs @ the bedside.
[2019-11-24] MEDS: LEVOTHYROXINE SODIUM 0.15 MG TABLET PO SCH (06:35)
--- NOTE | 2019-11-24 07:30 | NUR ---
Opening note Patient resting in bed at this time, A/ox4, no complaints of pain. Iv patent, intact. no adverse side effects noted. Patient has GTube refusing to allow assessment of GT placement. On safety and aspiration precautions, HOB kept elevated, bed alarm on, 3 side rails up, call light within reach. patient in stable condition. Will continue to monitor.
[2019-11-24] MEDS: FAMOTIDINE 20 MG TABLET PO SCH (08:39)
--- NOTE | 2019-11-24 09:00 | NUR ---
medications All morning medications given as ordered. no adverse side effects noted.
--- NOTE | 2019-11-24 10:59 | NUR ---
DCP: DCP left message for Faiza [phone] and Carlos [phone] patient son pt daughter. DCP made CM aware. Addendum: 11/24/19 at 1118 by Lauren Luu RN S/W dr. Lopez regarding discharge barriers: [facility] not accepting dt medicare payment concerns and sons are not returning calls. Dr. Lopez reevaluate the pt and will write the dc order to home with family and to f/u with psychiatrist out patient.
--- NOTE | 2019-11-24 11:32 | NUR ---
Gt dressing Gt noted with drainage. Skin care provided. GT dressing applied. No other needs at this time.
--- NOTE | 2019-11-24 13:30 | NUR ---
Lunch Patient sitting up in bed at this time, eating lunch, tolerating well. No nausea, no vomiting. no complaints of abdominal pain.
--- NOTE | 2019-11-24 15:45 | NUR ---
rounds Patient resting in bed at this time, no complaints of pain. assisted patient to the restroom and back to bed with walker. no other needs at this time.
--- NOTE | 2019-11-24 16:03 | NUR ---
SS NOTES/APS: PILE DRIVER OPERATOR spoke with Randa @ [phone], APS worker regarding patient's discharge HOME. Randa was concern about patient's safety and initially thought the patient was to be transferred to [facility], but due to patient's G-tube and no skilled need, the patient is to be discharged home instead with follow-up with PCP and Psych MD. Information received from Celestina ALEJO.
--- NOTE | 2019-11-24 18:19 | NUR ---
closing note Patient resting in bed at this time, A/ox4, no complaints of pain. Iv patent, intact. no adverse side effects noted. Patient has GTube refusing to allow assessment of GT placement. On safety and aspiration precautions, HOB kept elevated, bed alarm on, 3 side rails up, call light within reach. patient in stable condition. All needs met. patient awaiting discharge, son stated he will pick her up at 2000
[2019-11-24] MEDS: OLANZapine 5 MG TABLET PO SCH (21:25)
[2019-11-24] MEDS: MIRTAZAPINE 15 MG TABLET PO SCH (21:25)
--- NOTE | 2019-11-24 22:30 | NUR ---
pt.was d/c home in stable.condition.pt was released to the son;juarez.i had telephoned the son p/t d/c to requests clothing from home.i have reviewed the paper work w/juarez.had telephoned the prescriptions to the pt's pharmacy;[facility].pt to f/u w/ pmd/psych: w/in 1 week,.i apprised the son who is to call the respective dr's offices to schedule the subsequst appointments.no c/o pain,nausea.all belongings accounted for.wheel chair utilized to transfer pt.to designated pt. pick-up.
--- NOTE | 2019-12-02 14:34 | NUR ---
Discharge Follow Up Phone Call OPTICAL GOODS WORKER phoned the number listed for patient, , and spoke with patient's son and caregiver, Carlos. He stated that they were unable to care for patient at home and phoned Dr Neff. Patient was admitted to [facility] yesterday, 12/01/19.
== END 2019-11-24 22:35 | disposition home or self-care (01) | DRG 682 ==
LOC: SED 12:43 → STU 15:24 → SMU 21:35
PROVIDERS: ADMIT Internal Medicine; ATTEND Internal Medicine
DX: N17.0 Acute kidney failure with tubular necrosis (principal); E41 Nutritional marasmus; N39.0 Urinary tract infection, site not specified; Z68.1 Body mass index [BMI] 19.9 or less, adult; F31.4 Bipolar disorder, current episode depressed, severe, without psychotic features; E03.9 Hypothyroidism, unspecified; R62.7 Adult failure to thrive; E86.0 Dehydration; D50.9 Iron deficiency anemia, unspecified; E87.6 Hypokalemia; I10 Essential (primary) hypertension; Z93.1 Gastrostomy status; Z88.8 Allergy status to other drugs, medicaments and biological substances; Z79.899 Other long term (current) drug therapy
CPT/HCPCS: 36415; 80048; 80053; 80061; 80307; 81000-TC; 82607; 82746; 83036; 83540-TC; 83550-TC; 83735-TC; 84443-TC; 85025; 87086; 93005; 97110-GP; 97116-GP; 97530-GP; 99285; G0480; G0481; G0482; J0696; J3480; J7030; J7050; J7060

== ENCOUNTER 2019-12-08 18:51 | Emergency (ER) | payer OTHER ==
[~2019-12-08] VITALS: Ht 170.2 cm; Wt 54.4 kg
[~2019-12-08 18:51] MED LIST: LEVO150T8 PO; LORA-259 PO; OLAN5TAB26 PO; REM15 PO
[2019-12-08 19:00] VITALS: BP_SYST 136
[2019-12-08] MEDS ORDERED: DIPHENHYDRAMINE INJ 50 MG/ML VIAL IVP ONE (20:15)
[2019-12-08] MEDS ORDERED: MORPHINE 2 MG/ML INJ. SYRINGE IVP ONE (20:15)
[2019-12-08] MEDS ORDERED: NACL 0.9% 1,000 ML IV ONE (20:15)
[2019-12-08 20:39] LABS: BASOPHILS % (AUTO) 0.8 % (0.0-2.0); EOSINOPHILS # (AUTO) 1.2 K/uL (0.0-0.4); EOSINOPHILS % (AUTO) 18.8 % (0.0-4.0); HEMATOCRIT 25.4 % (36-48); HEMOGLOBIN 8.5 g/dL (12.0-16.0); LYMPHOCYTES # (AUTO) 1.1 K/uL (1.0-5.5); MEAN CORPUSCULAR HEMOGLOBIN 32 pg (27-31); MEAN CORPUSCULAR HGB CONC 33 % (32-36); MEAN CORPUSCULAR VOLUME 97 fL (79.0-98.0); MONOCYTES # (AUTO) 0.3 K/uL (0.0-1.0); NEUTROPHILS # (AUTO) 3.5 K/uL (1.8-7.7); NEUTROPHILS % (AUTO) 57.4 % (40.0-70.0); PLATELET COUNT (AUTO) 193 K/uL (130-430); RED BLOOD CELL COUNT(AUTO) 2.63 MIL/uL (4.2-6.2); RED CELL DISTRIBUTION WIDTH 16.7 % (9.0-15.0); WHITE BLOOD COUNT (AUTO) 6.2 K/uL (4.8-10.8)
[2019-12-08 20:59] LABS: CALCIUM 8.8 mg/dL (8.4-11.0); CREATININE 2.29 mg/dL (0.55-1.30); POTASSIUM 3.7 mmol/L (3.5-5.1)
[2019-12-08 21:01] LABS: INR 1.2 (0.8-1.2); PROTHROMBIN TIME 12.4 SECS (9.5-12.5)
[2019-12-08 21:05] LABS: ALBUMIN 3.4 g/dL (3.4-4.8); TOTAL BILIRUBIN 0.3 mg/dL (0.0-1.0)
[2019-12-08] MEDS: MORPHINE 4 MG/ML INJ. SYRINGE IM ONE (21:24)
[2019-12-08] MEDS: DIPHENHYDRAMINE INJ 50 MG/ML VIAL IM ONE (21:24)
[2019-12-08 23:25] VITALS: BP_SYST 112
== END 2019-12-08 23:25 | disposition left against medical advice (07) ==
LOC: SED 18:51
DX: K94.23 Gastrostomy malfunction (principal); D64.9 Anemia, unspecified; N19 Unspecified kidney failure; Z88.6 Allergy status to analgesic agent; Z79.899 Other long term (current) drug therapy
CPT/HCPCS: 36415; 80053; 84484; 85025; 85610; 85730; 99284; J1200; J2270